=== PATIENT | female | born 1995 | race African-American/Black ===

== ENCOUNTER 2018-07-16 00:29 | Emergency (ER) | payer BC, OTHER ==
--- NOTE | 2018-07-16 02:00 | PDOC ---
Medical Decision Making - Medical Decision Making 07/16/18 02:00 Patient seen by the advanced practice provider under my direct supervision. Ancillary testing reviewed as necessary. I agree with plan as outlined by the advanced practice provider. *DC/Admit/Observation/Transfer Diagnosis at time of Disposition: Exposure to blood or body fluid - Discharge Dispostion Condition at time of disposition: Fair - Referrals - Patient Instructions Printed Discharge Instructions: How to Handle Body Fluid Exposure -- Non- Healthcare Worker (At Home, [facility] Additional Instructions: please tach - Post Discharge Activity Forms/Work/School Notes: Back to Work
--- NOTE | 2018-07-16 02:03 | PDOC ---
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 Patient reports that she saw blood to the left thumb. Patient immediately washed her hands. Did not squeeze out any. Blood. Patient has a past medical history of asthma Past History - Past Medical History Allergies/Adverse Reactions: Allergies Allergy/AdvReac Type Severity Reaction Status Date / Time No Known Allergies Allergy Verified 07/16/18 02:07 Home Medications: Ambulatory Orders Ibuprofen [Motrin -] 400 mg PO Q6H PRN 12/25/12 Na Phos,M-B/Na Phos,Di-Ba [Fleet Enema] 133 ml RC 12/25/12 Psyllium Seed [Metamucil] 260 gm PO 12/25/12 Nitrofurantoin Monohyd/M-Cryst [Macrobid] 100 mg PO BID #14 capsule 12/26/12 Sennosides [Senna] 2 tab PO DAILY PRN #10 tablet 12/26/12 - Suicide/Smoking/Psychosocial Hx Smoking Status: Yes Smoking History: Current some day smoker Number of Cigarettes Smoked Daily: 5 Drug/Substance Use Hx: No Substance Use Type: None Review of Systems - Review of Systems Able to Perform ROS?: Yes Is the patient limited [place] proficient: No Constitutional: No: Symptoms Reported, See HPI, Chills, Diaphoresis, Fever, Loss of Appetite, Malaise, Night Sweats, Weakness, Weight Stable, Unintentional Wgt. Loss, Unexplained wgt Loss, Other Integumentary: Yes: Other (puncture wound) *Physical Exam - Vital Signs 07/16/18 02:31 Last Vital Signs Temp Pulse Resp BP Pulse Ox 98.4 F 83 15 122/72 99 07/16/18 01:55 07/16/18 01:55 07/16/18 01:55 07/16/18 01:55 07/16/18 01:55 - Physical Exam General Appearance: Yes: Appropriately Dressed Integumentary: positive: Other (small puncture noted toleft thumb) Neurologic: positive: Fully Oriented, Alert, Normal Mood/Affect Progress Note - Progress Note Progress Note: A: Postexposure to blood; needlestick injury p: labs Pep to initiate in the er. Vaccines are up to date. Including tetanus Patient will Patient will follow-up with the workplace to see if source patient can be tested for HIV and hepatitis. *DC/Admit/Observation/Transfer Diagnosis at time of Disposition: Exposure to blood or body fluid - Discharge Dispostion Disposition: HOME Condition at time of disposition: Fair - Referrals - Patient Instructions Printed Discharge Instructions: How to Handle Body Fluid Exposure -- Non- Healthcare Worker (At Home, [facility] Additional Instructions: please follow up with your primary doctor as soon as possible its important to find out source patient's status. take pep as prescribed. - Post Discharge Activity Forms/Work/School Notes: Back to Work
[2018-07-16 02:07] VITALS: BP 122/72; PULSE 83; TEMP 98.4; BMI 27.4
[2018-07-16 02:54] LABS: BASO % 0.3 % (0-2.0); EOS % 1.3 % (0-4.5); HEMATOCRIT 41.7 % (32.4-45.2); MCH 27.3 pg (25.7-33.7); MCHC 33.6 g/dl (32.0-36.0); MEAN CELL VOLUME 81.3 fl (80-96); MEAN PLT VOLUME 10.7 fl (7.5-11.1); MONO % 9.4 % (3.8-10.2); PLATELET COUNT 212 K/MM3 (134-434); RBC 5.13 M/mm3 (3.60-5.2); RDW 13.8 % (11.6-15.6); WHITE BLOOD COUNT 9.9 K/mm3 (4.0-10.0)
[2018-07-16 03:19] LABS: ALBUMIN 4.7 g/dl (3.4-5.0); ALK PHOS 59 U/L (45-117); ANION GAP 9 MMOL/L (8-16); BILIRUBIN,TOTAL 0.5 mg/dL (0.2-1); BLOOD UREA NITROGEN 14 mg/dL (7-18); CALCIUM 9.4 mg/dL (8.5-10.1); CHLORIDE 108 mmol/L (98-107); CHOLESTEROL 163 mg/dL (50-200); CO2 23 mmol/L (21-32); CREATININE 0.8 mg/dL (0.55-1.3); GAMMA GLUTAMYL TRANSPEPTIDASE 36 U/L (5-85); GLUCOSE,RANDOM 92 mg/dL (74-106); PHOSPHOROUS 3.6 mg/dL (2.5-4.9); POTASSIUM 3.7 mmol/L (3.5-5.1); SGOT/AST 17 U/L (15-37); SGPT/ALT 22 U/L (13-61); SODIUM 140 mmol/L (136-145); TOT PROT 8.3 g/dl (6.4-8.2); TRIGLYCERIDES 40 mg/dL (0-150); URIC ACID 3.5 mg/dL (2.6-7.2)
[2018-07-16 03:26] LABS: LDH 162 U/L (84-246)
[2018-07-16] MEDS ORDERED: HIV POST EXPOSURE PROPHYLAXIS KIT NR ONE (03:48)
[2018-07-16] MEDS ORDERED: HIV POST EXPOSURE PROPHYLAXIS KIT PO ONE (03:52)
== END 2018-07-16 04:01 | disposition home or self-care (01) ==
LOC: JER 00:29
DX: Z77.21 Contact with and (suspected) exposure to potentially hazardous body fluids (principal); W46.1XXA Contact with contaminated hypodermic needle, initial encounter; Y93.89 Activity, other specified; Y92.129 Unspecified place in nursing home as the place of occurrence of the external cause; Y99.0 Civilian activity done for income or pay
CPT/HCPCS: 36415; 80053; 82465; 82977; 83615; 84100; 84478; 84550; 84703; 85025; 86317; 86706; 86803; 87340; 87389; 99281-25